=== PATIENT | male | born 1965 | race Two or more races ===

== ENCOUNTER → 2019-03-26 | Outpatient (CLI) | payer SELFPAY ==
[~2019-03-26] VITALS: Ht 188 cm; Wt 105.7 kg
[2019-03-26 15:51] LABS: Basophils # (auto) 0 uL; Basophils % (auto) 0.4 % (0.0-2.0); Eosinophils # (auto) 0.2 uL; Eosinophils % (auto) 2.3 % (0.0-7.0); Hematocrit 49.2 % (41.0-53.0); Hemoglobin 16.6 g/dL (13.5-17.5); Lymphocytes # (auto) 2.4 uL; Lymphocytes % (auto) 29.1 % (10.0-50.0); Mean Corpuscular Hgb Conc. 33.7 g/dL (32.0-36.0); Monocytes # (auto) 0.6 uL; Monocytes % (auto) 6.9 % (0.0-12.0); Neutrophils % (auto) 61.3 % (37.0-80.0); Nucleated Red Blood Cells % 0.1 %; Platelet Count (auto) 219 10^3/uL (140-450); Red Blood Cells 5.18 10^6/uL (4.5-5.90); Urine Blood Negative /uL (Negative); Urine Specific Gravity 1.016 (1.001-1.035); White Blood Cell 8.2 10^3/uL (4.4-10.8)
[2019-03-26 16:02] LABS: Albumin 3.9 g/dL (3.4-5.0); Calcium 9.1 mg/dL (8.5-10.1); Magnesium 2.5 mg/dL (1.6-2.6); Potassium 4.3 mmol/L (3.5-5.1)
[2019-03-26 16:07] LABS: Bilirubin, Total 0.7 mg/dL (0.2-1.0)
[2019-03-26 16:08] LABS: Free T4 (Free Thyroxine) 1.12 ng/dL (0.89-1.76); Prostate Specific Antigen 1.49 ng/mL (0.0-4.0)
== END | disposition home or self-care (01) ==
LOC: Rad HDHVI 11:11
PROVIDERS: ATTEND Internal Medicine Cardiovascular Disease
DX: Z00.00 Encounter for general adult medical examination without abnormal findings (principal); E03.9 Hypothyroidism, unspecified; K90.9 Intestinal malabsorption, unspecified; C61 Malignant neoplasm of prostate; E29.1 Testicular hypofunction; N39.0 Urinary tract infection, site not specified; D51.9 Vitamin B12 deficiency anemia, unspecified; E78.00 Pure hypercholesterolemia, unspecified; F17.210 Nicotine dependence, cigarettes, uncomplicated; R00.2 Palpitations; I48.91 Unspecified atrial fibrillation; I44.4 Left anterior fascicular block; R94.31 Abnormal electrocardiogram [ECG] [EKG]; Z79.899 Other long term (current) drug therapy; Z82.49 Family history of ischemic heart disease and other diseases of the circulatory system
CPT/HCPCS: 36415; 80053; 80061; 81003; 82306; 82607; 83036; 83735; 84153; 84403; 84439; 84443; 85025; 93306